=== PATIENT | male | born 1995 | race Caucasian/White ===

== ENCOUNTER → 2017-09-16 | Outpatient (CLI) | payer BC ==
--- NOTE | 2017-09-16 15:32 | NM ---
EXAMINATION TYPE: NM bone scan whole body DATE OF EXAM: 09/16/2017 COMPARISON: No plain film supplied for correlation. HISTORY: Pain in the, trauma to right knee Delayed whole-body scanning was performed following the injection of 27.4 mCi Tc 99m MDP. Images acq uired 3 hours post injection. FINDINGS: Soft tissue uptake is normal. Uptake within the skeleton is normal for patient's age. No areas of abn ormal increased or decreased radiopharmaceutical uptake. IMPRESSION: Normal bone scan
== END ==
LOC: RADNMMAIN 11:09
PROVIDERS: ATTEND Orthopaedic Surgery
DX: M25.561 Pain in right knee (principal)
CPT/HCPCS: 78306; A9503